=== PATIENT | female | born 1990 | race Caucasian/White ===

== ENCOUNTER → 2023-03-23 | Outpatient (CLI) | payer BC, SELFPAY | PROVIDERS: Referring Provider Family Medicine; Visit Provider Family Medicine | DX: Z23 Encounter for immunization (principal) | CPT/HCPCS: 90471; 90686 ==

== ENCOUNTER → 2023-03-31 16:41 | Outpatient (CLI) | payer BC, SELFPAY | PROVIDERS: Visit Provider Registered Nurse | DX: R10.9 Unspecified abdominal pain (principal) | CPT/HCPCS: 87077; 87086; 87147 ==

== ENCOUNTER → 2025-03-30 13:41 | Outpatient (CLI) | payer BC, SELFPAY ==
--- NOTE | 2025-03-30 13:43 | DI.US.S_ITS ---
PROCEDURE: US OB >= 14 WEEKS FETUS INDICATIONS: ANATOMY OUTSIDE/PRIOR DATING DATA: Last menstrual period (LMP): 11/10/2024 LMP-based estimated date of delivery (OSORIO): 08/17/2025 First dating scan (date and location): 01/06/2025 Estimated date of delivery (OSORIO) from first dating scan: 08/15/2025 The calculations are made using the clinical OSORIO of 08/17/2025 TECHNIQUE: Real-time scanning was performed of the fetus, with image documentation and biometric measurements. Endovaginal scanning: Not performed COMPARISON: None. FINDINGS: General: A single living intrauterine gestation is present. Presentation: Variable Placenta: Placental position is anterior, without previa. Amniotic fluid index: 15.8 cm, normal range is 5-24 cm. Mild low-level echoes are seen in the amniotic fluid, likely of no clinical significance. Single deepest vertical pocket is 5.6 cm. heart rate: 160 beats per minute. Maternal cervical canal: 6.7 cm long. Normal lower limit is 2.5 cm. biometrics: Biparietal diameter: 4.5 cm, 19 weeks 4 days Head circumference: 17.3 cm, 19 weeks 6 days Abdominal circumference: 15.0 cm, 20 weeks 2 days Femur length: 3.2 cm, 19 weeks 6 days Clinically estimated gestational age: 20 weeks 0 days Composite gestational age from present scan: 19 weeks 6 days Estimated weight and percentile: 327 g, 46th percentile Anatomic survey: Neuro: Ventricles are non-dilated at less than 10 mm. Cisterna magna is normal at 3-11 mm. Cerebellum is normal in size and morphology. Nuchal skin fold: Normal at less than 6 mm between 14-21 weeks gestational age. Face: Nose and lips, facial profile are normal. Spine: No evidence for spina bifida. Heart: 4-chambered heart is present, with normal ventricular outflow tracts. Diaphragm: Diaphragm is intact. Stomach: Left-sided stomach is present. Kidneys: No hydronephrosis. Normal is less than 5 mm in 2nd trimester, less than 7 mm in 3rd trimester. Cord: 3-vessel cord has orthotopic insertion. Bladder: Normal in size. Extremities: All 4 extremities identified. IMPRESSION: 1. Single live intrauterine with appropriate interval growth. 2. Low level echoes in the in the amniotic fluid, which is of doubtful clinical significance. 3. anatomic survey is otherwise within normal limits. Approved by: Stanley Briceno M.D. on 03/31/2025 at 14:51
== END ==
LOC: US 13:42
PROVIDERS: Referring Provider Advanced Practice Midwife; Visit Provider Advanced Practice Midwife
DX: Z34.92 Encounter for supervision of normal pregnancy, unspecified, second trimester (principal); Z3A.20 20 weeks gestation of pregnancy
CPT/HCPCS: 76811

== ENCOUNTER → 2025-06-02 15:11 | Outpatient (CLI) | payer BC, SELFPAY ==
--- NOTE | 2025-06-02 15:12 | DI.US.S_ITS ---
PROCEDURE: US OB BIOPHYSICAL PROFILE INDICATIONS: FOLLOW UP TO PRIOR ULTRASOUND OUTSIDE/PRIOR DATING DATA: Last menstrual period (LMP): 11/10/24. LMP-based estimated date of delivery (OSORIO): 08/17/25. First dating scan (date and location): 01/06/25. Estimated date of delivery (OSORIO) from first dating scan: . TECHNIQUE: Real-time scanning was performed of the fetus for biophysical profile, with image documentation. Color and pulse Doppler interrogation was also performed of the umbilical artery near its insertion into the placenta. Endovaginal scanning: Not needed COMPARISON: [facility], , US OB >= 14 WEEKS FETUS, 03/30/2025, 14:02. FINDINGS: General: A single living intrauterine gestation is present. Presentation: Breech. Placenta: Placental position is anterior , without previa. Amniotic fluid index: 20.4 cm, normal range is 5-24 cm. Single deepest vertical pocket is 6.0 cm. heart rate: 137 beats per minute. Maternal cervical canal: 5.2 cm long. Normal lower limit is 2.5 cm. Estimated gestational age: 29 weeks 1 day Biophysical profile: Tone: 2 points. Movement: 2 points. Respiration: 0 points. Largest pocket of fluid: 2 points. IMPRESSION: 6 of 8 possible points for the biophysical profile score. We strive to produce accurate, complete, and clear reports of imaging services. To assist us in improving patient care, this report was composed using standard report templates and voice recognition software. Therefore, it may contain abnormal punctuation, insertions and/or omissions. Occasional wrong-word or sound-alike substitutions may occur. Though we review the report and make efforts to correct it, we do recommend that the report be read carefully in proper context to recognize any text inaccuracies. Dictated by: Roby Roman M.D. on 06/03/2025 at 10:01 Approved by: Roby Roman M.D. on 06/03/2025 at 10:07
== END ==
PROVIDERS: Referring Provider Advanced Practice Midwife; Visit Provider Advanced Practice Midwife
DX: O28.3 Abnormal ultrasonic finding on antenatal screening of mother (principal); Z3A.29 29 weeks gestation of pregnancy
CPT/HCPCS: 76819